=== PATIENT | female | born 1965 | race Caucasian/White ===

== ENCOUNTER 2020-12-28 09:18 | Day surgery (SDC) | payer BC, OTHER ==
[2020-12-22 12:54] LABS: BASOPHILS % (AUTO) 0.8 % (0-1); EOSINOPHILS # (AUTO) 0.2 X10'3 (0-0.9); EOSINOPHILS % (AUTO) 3.6 % (0-6); LYMPHOCYTES # (AUTO) 1.9 X10'3 (1.1-4.8); LYMPHOCYTES % (AUTO) 36.4 % (21-51); MEAN CORPUSCULAR HEMOGLOBIN 30.5 PG (27.0-31.0); MEAN CORPUSCULAR HGB CONC 33.4 g/dL (33.0-36.5); MEAN CORPUSCULAR VOLUME 91.2 FL (78-98); MEAN PLATELET VOLUME 7.8 FL (7.4-10.4); MONOCYTES # (AUTO) 0.5 X10'3 (0-0.9); MONOCYTES % (AUTO) 8.5 % (2-12); NEUTROPHILS # (AUTO) 2.7 X10'3 (1.8-7.7); NEUTROPHILS % (AUTO) 50.7 % (42-75); PRE OP HEMATOCRIT 39.8 % (35.0-45.0); PRE OP HEMOGLOBIN 13.3 g/dL (12.0-16.0); PRE OP PLATELET COUNT 238 X10'3 (140-440); RED BLOOD COUNT 4.36 X10'6 (4.20-5.60); RED CELL DISTRIBUTION WIDTH 13.7 % (11.5-14.5)
[2020-12-22 13:04] LABS: PRE OP PROTIME 10.3 SECONDS (9.0-12.0)
[2020-12-22 13:07] LABS: ALBUMIN 3.8 G/DL (3.4-5.0); ALKALINE PHOSPHATASE 62 IU/L (46-116); BLOOD UREA NITROGEN 12 MG/DL (7-18); BUN/CREATININE RATIO 16.7 (6.6-38.0); CALCIUM 8.2 MG/DL (8.5-10.1); CHLORIDE 106 MMOL/L (99-107); CREATININE 0.72 MG/DL (0.40-0.90); PRE OP ALT 18 U/L (30-65); PRE OP ANION GAP 10 (8-16); PRE OP AST 15 U/L (10-37); PRE OP BILIRUB, TOTAL 0.3 MG/DL (0.0-1.0); PRE OP GLUCOSE 103 MG/DL (70-104); PRE OP SODIUM 144 MMOL/L (135-145); TOTAL CARBON DIOXIDE 27.8 MMOL/L (24-32); TOTAL PROTEIN 7.7 G/DL (6.4-8.2); eGFR 83 ML/MIN
[2020-12-28] VITALS (10 sets, daily range): BP systolic 128–164; BP diastolic 70–103
[~2020-12-28] VITALS: Ht 162.6 cm; Wt 87.7 kg
[~2020-12-28 09:18] MED LIST: ATOR10TA70 PO; CHOL20004 PO; DOCU-148 PO; ESTR-99 PO; LIDOcaine 1% W/epiNEPHrine 1:100,000 20ml vial ONE; OMEP-50 PO; ZINC50TA67 PO; cefTAZidime 1gm inj ONE; clindamycin phosphate 150mg/ml inj. ONE; cocaine 4% topical solution 4ml bottle ONE; diazepam 5mg tablet PO PRN; famotidine 20mg tablet PO ONE; mupirocin 2% ointment 22GM ONE; nitroGLYCERIN-Tridil 50MG/D5W 250 ML IV ONE; oxymetazoline 15 ML nasal spray NS ONE; ringers solution, lacted 1,000 ML IV SCH
[2020-12-28] MEDS: oxymetazoline 15 ML nasal spray NS PRN ×2 (09:51→11:55)
[2020-12-28] MEDS ORDERED: sevoflurane 250ml liquid IH ONE (11:29)
[2020-12-28] MEDS ORDERED: fentaNYL/PF 50MCG/1 ML 2ML syringe ONE (11:33)
[2020-12-28] MEDS ORDERED: midazolam 1 mg/ML 2ml injection ONE (11:34)
[2020-12-28] MEDS ORDERED: propofol inj 20 ML IV ONE (12:24)
[2020-12-28] MEDS ORDERED: ondansetron/PF 4mg/2ml inj ONE (12:24)
[2020-12-28] MEDS ORDERED: dexamethasone sod phosphate 4mg/ml inj. ONE (12:24)
--- NOTE | 2020-12-28 12:40 | NUR ---
Received from [place] via [facility], accompanied by Anesthesiologist, DR. BRAND and report given by Anesthesiologist. PATIENT WAKING UP, NO S/S OF PAIN, V/S WNL, SCD ON, 20G TO RUE, COTTONOIDS TO BILAT NARES-INTACT NO BLEEDING NOTED..
[2020-12-28] MEDS ORDERED: salt irrigation nasal spray 45 ML SPRAY NS PRN (12:50)
[2020-12-28] MEDS ORDERED: meperidine/PF 25mg/ml syringe IV PRN ×3 (13:00)
[2020-12-28] MEDS ORDERED: ringers solution, lacted 1,000 ML IV SCH (13:00)
[2020-12-28] MEDS ORDERED: labetalol 20mg/4ml (5mg/ml) syringe IV PRN (13:00)
[2020-12-28] MEDS ORDERED: morphine 4 MG/ML inj SYRINge IV PRN (13:00)
[2020-12-28] MEDS ORDERED: morphine 2 MG/ML inj. syringe IV PRN (13:00)
[2020-12-28] MEDS ORDERED: proCHLORperazine 10 MG/2 ml inj IV PRN (13:00)
[2020-12-28] MEDS ORDERED: ondansetron/PF 4mg/2ml inj IV PRN (13:00)
[2020-12-28] MEDS ORDERED: HYDROcodone/acetaminophen 5mg/325mg tablet PO STA (13:43)
--- NOTE | 2020-12-28 14:10 | NUR ---
COTTONOIDS REMOVED ORDERED AFTER ADDRESSING PT BP AND PAIN, PT NO W UP AND DRESSED, ABLE TO VOID, VSS, DENIES ANY PAIN, PIV D/CD- CANNULA INTACT, DISCUSSED HOME CARE FOR NASAL IRRIGATION AND MEDICATIONS, PT USED OCEAN SPRAY AND OINTMENT BEFORE LEAVING, ALL QUESTIONS ANSWERED, FRESH GAUZE PLACE UNDER NOSE, PT TAKEN WITH SUPPLIES AND BELONGINGS TO VEHICLE, TRANSPORTED BY FRIEND HOME.
== END 2020-12-28 14:10 | disposition home or self-care (01) ==
LOC: PAS 09:18
PROVIDERS: ATTEND Otolaryngology
DX: J34.2 Deviated nasal septum (principal); J34.3 Hypertrophy of nasal turbinates; M19.90 Unspecified osteoarthritis, unspecified site; K21.9 Gastro-esophageal reflux disease without esophagitis; E66.9 Obesity, unspecified; Z68.32 Body mass index [BMI] 32.0-32.9, adult; Z79.01 Long term (current) use of anticoagulants; Z79.899 Other long term (current) drug therapy; Z87.891 Personal history of nicotine dependence; Z88.1 Allergy status to other antibiotic agents; Z90.49 Acquired absence of other specified parts of digestive tract; Z98.890 Other specified postprocedural states; Z98.84 Bariatric surgery status; Z20.822 Contact with and (suspected) exposure to COVID-19
CPT/HCPCS: 30140; 30520; 36415; 80053; 82948; 85025; 85576; 85610; 85730; A6402; C9250; J0713; J1100; J2175; J2250; J2270; J2405; J2704; J3010; J3490; J7040; U0003; U0005; Z7506; Z7512; A4618; A7000; J7120